=== PATIENT | male | born 1955 | race Caucasian/White ===

== ENCOUNTER 2024-11-09 12:01 | Emergency (ER) | payer BC, SELFPAY ==
[2024-11-09 12:03] VITALS: BP 163/100
--- NOTE | 2024-11-09 13:38 | ED.GENMED ---
History of Present Illness
General
Chief Complaint: Throat Problem
Source: patient
Exam Limitations: none
Time Seen by Provider: 11/09/24 13:12
Nursing documentation reviewed up to this point in time: agreed with
History of Present Illness
History of Present Illness:
68-year-old male presenting to the emergency department today with concerns of worsening throat pain trouble tolerating by mouth over the past day or so treated over the past 2 days for sinus infection with the primary care doctor with Augmentin.
Trouble tolerating the pills today
Review of Systems
Review of Systems
Allergies reviewed?: Yes
All Other Systems: ROS reviewed and negative except as documented in HPI and ROS
Phy Exam
Physical Exam
Physical Exam:
GENERAL: Alert , in no apparent distress
EYE: pupils equal and reactive
NECK: Supple, no significant adenopathy.
ENT: Posterior pharynx with some mild swelling uvula midline grossly patent airway o/p clr, mmm.
CARDIAC: Regular rate and rhythm .
LUNGS: Clear breath sounds bilaterally, no acute respiratory distress, no wheezes/rales/rhonchi
ABDOMEN: Soft, without focal tenderness, no r/g, no cvat
NEUROLOGICAL: Alert and oriented, no focal neuro deficits
SKIN: Warm and dry, skin intact.
MUSCULOSKELETAL: No edema, well perfused.
PSYCH: Normal and appropriate interaction.
Course
Orders/Labs/Results
Orders:
Orders
11/09/24 13:37
CT Neck With Iv Contrast Urgent
Comment:
Reason For Exam: infection, trouble swallowing, swelling into neck
0.9% Sodium Chloride 1000 ml [Nss] 1,000 ml IV BOLUS
Dexamethasone Sod Phosphate [Decadron] 10 mg IV NOW STA
Ketorolac [Toradol] 15 mg IV NOW STA
11/09/24 14:09
CBC/With Diff [Complete Blood Count/With Diff] Urgent
CMP [Comprehensive Metabolic Panel] Urgent
Rapid Strep Group A Urgent
CASANDRA Source: Throat/Pharynx
Specimen Description:
Date Specimen was Collected: 11/09/24
Time Specimen was Collected: 13:42
11/09/24 16:21
Ketorolac [Toradol] 15 mg IV NOW STA
Abnormal Lab Results
11/09/24
14:09
WBC 12.3 H 10^3/uL
(4.8-10.8)
Abs Immat Gran (auto) 0.1 H 10^3/uL
(0-0.05)
Absolute Neuts (auto) 9.5 H 10^3/uL
(1.4-6.5)
Absolute Monos (auto) 1.1 H 10^3/uL
(0.1-0.6)
Neutrophils % 76.8 H %
(42.2-75.2)
Lymphocytes % 11.1 L %
(20.5-51.1)
Glucose 115 H mg/dl
(70-99)
11/09/24 14:09
11/09/24 14:09
Vital Signs
Initial and Last Documented VS:
Initial Vital Signs
Temp Pulse Resp BP Pulse Ox
99.1 F 111 18 163/100 98
11/09/24 12:03 11/09/24 12:03 11/09/24 12:03 11/09/24 12:03 11/09/24 12:03
Last Documented Vital Signs
Temp Pulse Resp BP Pulse Ox
99.1 F 111 18 163/100 98
11/09/24 12:03 11/09/24 12:03 11/09/24 14:00 11/09/24 12:03 11/09/24 12:03
MDM/Problems Addressed
MDM/Problems Addressed:
68-year-old male presenting to the emergency department concerns of worsening throat discomfort in the setting of recently starting antibiotics for sinus 2 days ago. He claims that he was taking his pills but feels like they are getting stuck
secondary to significant swelling denies any chest pain shortness of breath fevers. Slightly tachycardic on arrival temperature of 99.1. CT scan obtained that did not show any deep space abscess or emergent findings other than swelling. Patient
was given steroids, Toradol with significant improvement of symptoms while here patient does appear stable for outpatient management. Return precautions given.
*Critical Care Note
Total Time (30-74mins, 75-104mins- exclusive of procedures): Not Applicable
ED Attending Note
-
Portions of this chart may have been created with voice recognition software.� Occasional wrong word or��sound alike� substitutions may have occurred due to the inherent limitations of voice recognition software.
Discharge Plan
Departure
Patient Disposition: Home (Routine Discharge)
Date of Disposition: 11/09/24
Time of Disposition: 16:33
Patient with high blood pressure during this ER visit?: No
Condition: Good
Covid-19: Not Applicable
Discharge Problem:
Pharyngitis
Instructions: Sore Throat, Adult (DC)
Prescriptions:
New
clindamycin HCl 150 mg capsule
450 mg PO TID 7 Days Qty: 63 0RF
prednisone 50 mg tablet
50 mg PO DAILY 4 Days Qty: 4 0RF
Referrals:
Keegan Ac MD [Family Provider] -
Activity Restrictions/Additional Instructions:
You came to the emergency department today with concerns of significant throat discomfort and difficulty swallowing. Here the CT scan did not show any life-threatening findings. Please take the medications prescribed to help with symptoms over the
next few days. Return for any worsening, new or concerning symptoms.
Interventions
Interventions:
*Risk Screen - Suicide Last Done: 11/09/24 12:03
*General Assessment Last Done: 11/09/24 12:03
*Neglect/Abuse Screening Last Done: 11/09/24 14:42
ED- Fall Risk Assessment Last Done: 11/09/24 14:43
*ED COVID-19 Vaccine History Last Done: 11/09/24 12:03
ED-EENT Assessment Last Done: 11/09/24 14:42
ED- Pulmonary Assessment Last Done: 11/09/24 14:42
Discharge Date and Time
Print Language: MARTINIQUAIS
[2024-11-09] MEDS: DECADRON 10 MG IV (14:09)
[2024-11-09] MEDS: NSS 1000 IV (14:09)
[2024-11-09] MEDS: TORADOL 15 MG IV ×2 (14:09→16:51)
[2024-11-09 14:35] LABS: % Basophils 0.2 % (0-2); % Eosinophils 2.7 % (0-6); % Immature Granulocytes 0.4 % (0-0.5); % Lymphocytes 11.1 % (20.5-51.1); % Monocytes 8.8 % (1.7-9.3); % Neutrophils 76.8 % (42.2-75.2); Absolute Eosinophils 0.3 10^3/uL (0-0.7); Absolute Immature Granulocytes 0.1 10^3/uL (0-0.05); Absolute Lymphocytes 1.4 10^3/uL (1.2-3.4); Absolute Monocytes 1.1 10^3/uL (0.1-0.6); Absolute Neutrophils 9.5 10^3/uL (1.4-6.5); Hemoglobin 14.5 g/dL (13.0-18.0); Mean Corpuscular Hgb 28.7 pg (27.0-31.0); Mean Platelet Volume 10.2 fL (7.4-10.4); Nucleated Red Blood Cells % 0 % (-); Platelet Count 310 10^3/uL (130-400); Red Blood Cell Count 5.06 10^6/uL (4.70-6.10); Red Cell Dist. Width 13.3 % (11.5-14.5); White Blood Cell Count 12.3 10^3/uL (4.8-10.8)
[2024-11-09 14:46] LABS: ALT (SGPT) 44 U/L (0-50); AST (SGOT) 46 U/L (17-59); Albumin 4.3 g/dl (3.5-5.0); Alkaline Phosphatase 100 U/L (38-126); Blood Urea Nitrogen 20 mg/dl (9-20); Calcium 9.2 mg/dl (8.4-10.2); Carbon Dioxide 27 mmol/L (22-30); Chloride 107 mmol/L (98-107); Glucose 115 mg/dl (70-99); Potassium 4.2 mmol/L (3.5-5.1); Sodium 144 mmol/L (135-145); Total Bilirubin 0.6 mg/dl (0.2-1.3); Total Protein 7.3 g/dl (6.3-8.2); eGFR > 60.00
[2024-11-09 16:50] VITALS: BP 165/97
== END 2024-11-09 17:03 | disposition home or self-care (01) ==
LOC: EMR 12:01
PROVIDERS: Physician Assistant; EMERGENCY PHYSICIAN Emergency Medicine; FAMILY PHYSICIAN Family Medicine
DX: J02.9 Acute pharyngitis, unspecified (principal)
CPT/HCPCS: 96374; 96375; 96376; 99284; 70491; 80053; 85025; 87070; 87880; Q9967